=== PATIENT | female | born 1940 | race Caucasian/White ===

== ENCOUNTER 2020-05-18 15:22 | Outpatient (CLI) | payer OTHER, SELFPAY | END 2020-05-18 15:23 | disposition home or self-care (01) | LOC: ANHAUDIO 15:24 | PROVIDERS: PCP Internal Medicine; Visit Provider Otolaryngology | DX: H90.3 Sensorineural hearing loss, bilateral (principal) | CPT/HCPCS: 92557; 92567 ==

== ENCOUNTER 2020-09-01 07:58 | Day surgery (SDC) | payer OTHER, SELFPAY ==
[2020-09-01] VITALS (7 sets, daily range): BP systolic 120–162; BP diastolic 67–111; PULSE 81–107; RESP 17–23; TEMP 36.8–37.1; O2SAT 95–97
--- NOTE | 2020-09-01 08:38 | ED.GENADULT ---
HPI - General Adult General Chief complaint: Skin/Abscess/Foreign Body Stated complaint: difficulty swallowing Time Seen by Provider: 09/01/20 07:59 History of Present Illness HPI narrative: Patient is a 80-year-old female who presents ER with sensation of food stuck in her esophagus. Has been ongoing since 7 PM when she was eating some chicken. She reports if she tries to eat or drink anything she begins vomiting and cannot get the food or water down. This last happened this morning after waking up and trying to drink some water. She has had this happen to her previously and required balloon dilation of her esophagus about 15 years ago. She has discomfort in her upper neck and lower chest consistent with food being stuck. She reports something similar like this happened 4 months ago and she went to [facility] but symptoms resolved on their own. Related Data Home Medications Medication Instructions Recorded Confirmed metformin 500 mg tablet,extended 500 mg PO BID 05/02/20 release 24 hr thyroid (pork) 15 mg tablet 15 mg PO DAILY 05/02/20 Allergies Allergy/AdvReac Type Severity Reaction Status Date / Time prednisone Allergy Mild Unknown Unverified 09/01/20 08:15 bevacizumab Allergy Unknown Anaphylactic Verified 10/08/17 15:30 Shock ciprofloxacin Allergy Unknown Unknown Verified 09/01/20 08:15 Review of Systems Review of Systems: All systems reviewed & are unremarkable except as noted in HPI and below Constitutional: Constitutional: Denies chills and Denies fever(s) ENT: Reports dysphagia, Denies nasal congestion and Denies sore throat Cardiovascular: Cardiovascular: Denies chest pain Gastrointestinal: Gastrointestinal: Denies abdominal pain, Denies bloating, Denies nausea and Reports vomiting [facility] Past Medical History Medical History (Updated 09/01/20 @ 09:43 by Antonio Durand MD) Diabetes Diabetic retinopathy Surgical History Surgical History (Updated 09/01/20 @ 08:42 by Antonio Durand MD) H/O cataract extraction H/O esophagogastroduodenoscopy Family History Family History Sibling Family history of alcoholism Family history of diabetes mellitus in first degree relative Mother Family history of lung disease Father Family history of heart disease in male family member before age 55 Social History Social History Smoking status: Never smoker Alcohol intake: never Gender identity (if verbalized by the patient): Female Exam Narrative: Exam Narrative: GENERAL: Well-appearing, well-nourished, and in no acute distress. HEAD: Normocephalic, atraumatic. ENT: Mucous membranes moist. Tolerating oral secretions. CHEST: Clear to auscultation. No respiratory distress. HEART: Regular rate and rhythm. Normal peripheral pulses. ABDOMEN: Soft, nontender, nondistended. NEURO: Alert and oriented x3. PSYCH: Normal mood and affect. Course Reevaluation(s) Reevaluation #1: Discussed with Dr. Oquendo. Will take to GI suite. Date: 09/01/20 Time: 08:52 Vital Signs Vital signs: Vital Signs Temperature 98.8 F 09/01/20 08:10 Pulse Rate 107 H 09/01/20 08:10 Respiratory Rate 18 09/01/20 08:10 Blood Pressure 162/97 H 09/01/20 08:10 Pulse Oximetry 95 09/01/20 08:10 Temperature 98.8 F 09/01/20 08:10 Pulse Rate 107 H 09/01/20 08:10 Respiratory Rate 18 09/01/20 08:10 Blood Pressure 162/97 H 09/01/20 08:10 Pulse Oximetry 95 09/01/20 08:10 Medical Decision Making Vital Signs Vital Signs: Vital Signs Temperature 98.8 F 09/01/20 08:10 Pulse Rate 107 H 09/01/20 08:10 Respiratory Rate 18 09/01/20 08:10 Blood Pressure 162/97 H 09/01/20 08:10 Pulse Oximetry 95 09/01/20 08:10 Temperature 98.8 F 09/01/20 08:10 Pulse Rate 107 H 09/01/20 08:10 Respiratory Rate 18 09/01/20 08:10 Blood Pressure 162/97 H 09/01/20 0
--- NOTE | 2020-09-01 09:01 | PC.NURSE ---
Report given to Mirtha in OR
[2020-09-01] MEDS: LACTATED RINGERS 1,000 ML 150 ML IV CONT (10:13)
[2020-09-01 10:27] LABS: Glucose Point of Care 222 (65-105)
--- NOTE | 2020-09-01 10:49 | WPDANESEPPF ---
Anes - Initial Pre Proc Eval Procedure: Operation Date: 09/01/20 11:30 Proposed Procedures p Esophagogastroduodenoscopy - Stevo Oquendo MD Date/Time: 09/01/20 10:49 Surgeon: Stevo Oquendo MD Pre Op Diagnosis: difficulty swallowing Patient Data Age: 80 Gender: F Height: 5 ft 5 in Weight: 80 kg Last Vital Signs Temp 98.2 F 09/01/20 10:18 Pulse 81 09/01/20 10:18 Resp 17 09/01/20 10:18 BP 146/83 H 09/01/20 10:18 Pulse Ox 97 09/01/20 10:18 Allergies Allergy/AdvReac Type Severity Reaction Status Date / Time prednisone Allergy Mild Unknown Unverified 09/01/20 10:12 bevacizumab Allergy Unknown Anaphylactic Verified 09/01/20 10:12 Shock ciprofloxacin Allergy Unknown Unknown Verified 09/01/20 10:12 Home Medications Medication Instructions Recorded Confirmed Type metformin 500 mg tablet,extended 500 mg PO BID 05/02/20 09/01/20 History release 24 hr thyroid (pork) 15 mg tablet 15 mg PO DAILY 05/02/20 09/01/20 History Laboratory Tests 09/01/20 10:02 POC Capillary Glucose 222 mg/dl H mg/dl (65-105) Patient hx anesthesia problems: none Family hx anesthesia problems: none PMFSH Past Medical History Medical History (Updated 09/01/20 @ 10:49 by Atul Vargas MD) Diabetes Diabetic retinopathy Hypothyroid Surgical History Surgical History (Updated 09/01/20 @ 08:42 by Antonio Durand MD) H/O cataract extraction H/O esophagogastroduodenoscopy Family History Family History Sibling Family history of alcoholism Family history of diabetes mellitus in first degree relative Mother Family history of lung disease Father Family history of heart disease in male family member before age 55 Social History Social History Smoking status: Never smoker Alcohol intake: never Gender identity (if verbalized by the patient): Female Anes - Eval Final PreProcedure Day of Procedure 09/01/20 10:49 Patient weight: overweight Heart: regular rate and rhythm Lungs: clear to auscultation Airway: Mallampati scale class II Neurological: alert and oriented Last oral intake: >/= 8 hours ASA classification: III Emergent: yes Anesthetic plan: proceed Anesthesia type and monitoring: general GIVS and standard monitoring Informed Consent: The patient's anesthetic plan and its attendant risks and benefits were discussed with the patient/family/POA. Questions were solicited and answers provided to the satisfaction of the patient/family/POA.
--- NOTE | 2020-09-01 10:50 | P.CONGI_ITS ---
Assessment and Plan Assessment and plan (1) Esophageal obstruction due to food impaction: Code(s): K22.2 - Esophageal obstruction; T18.128A - Food in esophagus causing other injury, initial encounter Status: Acute Assessment and Plan: Patient has a food impaction. Appears to be on the basis of esophageal narrowing. History suggest acid reflux. This will be assessed at the time of endoscopy. Further recommendations will be given after EGD. GI Consult Note Consult date/time: 09/01/20 10:50 HPI: Shanique Dickinson is a 80 year old female Seen in evaluation at the request of the emergency room. Patient was eating [place] food with chicken last evening. She abruptly was unable to eat or swallow any additional intake. She currently has trouble with saliva. She apparently had difficulty all night. She states she has frequent heartburn. Takes [id number] antacids on a frequent basis. Occasionally will take [id number] Pepcid. She denies any bleeding or weight loss. Past medical history is significant for similar occurrence many years ago. Apparently treated elsewhere. She has been treated for or eye problems in the past with some steroids. [facility] Past Medical History Medical History (Updated 09/01/20 @ 10:49 by Atul Vargas MD) Diabetes Diabetic retinopathy Hypothyroid Surgical History Surgical History (Updated 09/01/20 @ 08:42 by Antonio Durand MD) H/O cataract extraction H/O esophagogastroduodenoscopy Family History Family History Sibling Family history of alcoholism Family history of diabetes mellitus in first degree relative Mother Family history of lung disease Father Family history of heart disease in male family member before age 55 Social History Social History Smoking status: Never smoker Alcohol intake: never Gender identity (if verbalized by the patient): Female Meds Home Medications and Allergies Home Medications Medication Instructions Recorded Confirmed Type metformin 500 mg tablet,extended 500 mg PO BID 05/02/20 09/01/20 History release 24 hr thyroid (pork) 15 mg tablet 15 mg PO DAILY 05/02/20 09/01/20 History Allergies Allergy/AdvReac Type Severity Reaction Status Date / Time prednisone Allergy Mild Unknown Unverified 09/01/20 10:12 bevacizumab Allergy Unknown Anaphylactic Verified 09/01/20 10:12 Shock ciprofloxacin Allergy Unknown Unknown Verified 09/01/20 10:12 Vital Signs Vital Signs - 24 hr 09/01/20 08:10 09/01/20 09:48 09/01/20 10:18 Temperature 98.8 F 98.2 F Pulse Rate 107 H 103 H 81 Respiratory Rate 18 18 17 Blood Pressure 162/97 H 160/93 H 146/83 H Pulse Oximetry 95 97 97 Exam Narrative: Exam Narrative: Physical exam reveals patient to be alert. Vital signs stable. Somewhat uncomfortable at rest. Producing excess saliva. HEENT exam otherwise unremarkable. Lungs are clear to auscultation and percussion. Heart is without murmur or extra sounds. Abdominal exam bowel sounds are present soft nontender with no hepatosplenomegaly. Rectal exam deferred at this time.
== END 2020-09-01 12:15 | disposition home or self-care (01) ==
LOC: ANHED 08:50 → ANHENDO 09:38
PROVIDERS: Emergency Provider Emergency Medicine; PCP Internal Medicine; Visit Provider Internal Medicine Gastroenterology
PROC: 0DJ08ZZ Inspection of Upper Intestinal Tract, Via Natural or Artificial Opening Endoscopic (ICD-10-PCS; CPT 43235; principal; 2020-09-01 11:30)
DX: T18.128A Food in esophagus causing other injury, initial encounter (principal); Q39.4 Esophageal web; K44.9 Diaphragmatic hernia without obstruction or gangrene; E11.319 Type 2 diabetes mellitus with unspecified diabetic retinopathy without macular edema; E03.9 Hypothyroidism, unspecified; Z79.84 Long term (current) use of oral hypoglycemic drugs
CPT/HCPCS: 43247; 43450; 99285; J2704; J7120

== ENCOUNTER 2021-06-02 09:29 | Outpatient (CLI) | payer OTHER, SELFPAY ==
--- NOTE | ~2021-06-02 | US_ITS ---
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 COMPARISON: None. FINDINGS: Right and left brachial artery pressures of 154 mm Hg and 179 mm Hg, respectively, are concordant (no rmal difference <= 30 mmHg). The right and left high-thigh pressure indices are unable to be obtained due to inability to occlude the vessels at the bilateral thighs (normal > 1.2). The right ankle-brachial index (KENIA) is 0.84 (normal >= 0.9-1). The right great toe-brachial index (T BI) is 0.44 (normal >= 0.6-0.8). The right lower extremity segmental pressure gradients are normal (n ormal gradients <= 20-30 mmHg between adjacent levels on the same leg or the same levels on the two l egs). Arterial waveforms are biphasic with brisk systolic upstrokes throughout the arteries of the ri ght lower limb. The left KENIA is 0.88. The left TBI is 0.35. The left lower extremity segmental pressure gradients are normal between the arteries at the bilateral ankles with pressures unable to be obtained in the more proximal left lower limb due to inability to occlude the vessels. Arterial waveforms are biphasic wi th brisk systolic upstrokes throughout the arteries of the left lower limb. IMPRESSION: 1. Lateral arterial occlusive disease with mildly decreased bilateral ABIs and mildly decreased right and moderately decreased left TBIs. Reviewed, dictated and finalized at location A.
== END 2021-06-02 09:30 | disposition home or self-care (01) ==
LOC: ANHIMG 09:43
PROVIDERS: Visit Provider Podiatrist Foot & Ankle Surgery
DX: I70.203 Unspecified atherosclerosis of native arteries of extremities, bilateral legs (principal)
CPT/HCPCS: 93923

== ENCOUNTER 2021-10-11 14:02 | Outpatient (RCR) | payer OTHER, SELFPAY ==
[2021-10-11] MEDS: diphenhydrAMINE HCl CAP 25 MG CAPSULE PO (15:20)
[2021-10-11] MEDS: ACETAMINOPHEN 325 MG TABLET 650 MG PO (15:20)
[2021-10-11] MEDS: FAMOTIDINE 20 MG TABLET PO (15:20)
[2021-10-11 15:23] VITALS: BP 164/64; PULSE 72; RESP 20; TEMP 37; O2SAT 100
[2021-10-11 16:27] VITALS: BP 147/58
== END 2021-10-11 17:00 ==
LOC: AMCINF 14:02
PROVIDERS: PCP Physician Assistant Medical; Visit Provider Internal Medicine Hematology & Oncology
DX: U07.1 COVID-19 (principal); E11.9 Type 2 diabetes mellitus without complications; I25.10 Atherosclerotic heart disease of native coronary artery without angina pectoris
CPT/HCPCS: A9270; M0243; Q0244

== ENCOUNTER 2023-01-08 15:16 | Emergency (ER) | payer OTHER, SELFPAY ==
[2023-01-08 15:31] VITALS: BP 172/66; PULSE 79; RESP 16; TEMP 36.6; O2SAT 96
[2023-01-08 15:33] VITALS: BP 172/66; PULSE 79; RESP 16; TEMP 36.6; O2SAT 96
--- NOTE | 2023-01-08 15:39 | ED.URI ---
HPI - URI/Sore Throat General Chief Complaint: Upper Respiratory Infection Stated Complaint: Weakness, Sore Throat Time Seen by Provider: 01/08/23 15:39 Source: patient Mode of arrival: ambulatory Limitations: no limitations History of Present Illness HPI Narrative: 82 yo F presents with c/o sore throat, nasal congestion, sinus pressure, PND for 1 wk. Symptoms getting progressively worse. Now c/o sinus pressure is causing dental pain. TAking OTC dayquil/nyquil with no relief. afebrile. No CP or SOB. States Very little coughing . pt is well appearing and talkative. All systems reviewed and negative except as noted above. Related Data Home Medications Medication Instructions Recorded Confirmed flash glucose sensor ([employer] 08/10/22 Hank 2 Sensor kit) estradiol 0.01% (0.1 mg/gram) 1 g vaginal 3XW 10/09/22 01/08/23 vaginal cream metformin 500 mg tablet 1,000 mg PO BID 11/20/22 01/08/23 Allergies Allergy/AdvReac Type Severity Reaction Status Date / Time prednisone Allergy Mild Loss of Verified 11/16/22 10:32 bladder control bevacizumab Allergy Unknown Anaphylactic Verified 11/16/22 10:32 Shock ciprofloxacin Allergy Unknown Unknown Verified 11/16/22 10:32 steroids Allergy Unknown Uncoded 11/16/22 15:58 Review of Systems Review of Systems: CONSTITUTIONAL: Denies fever, chills, or sweats. EYES: Denies visual changes, redness, or discharge. ENT: Reports rhinorrhea, congestion, sore throat, sinus pressure. Denies otalgia. CARDIOVASCULAR: Denies chest pain, palpitations, or edema. RESPIRATORY: Denies cough or dyspnea. GASTROINTESTINAL: Denies abdominal pain, nausea, vomiting, or diarrhea. GENITOURINARY: Denies dysuria or hematuria. SKIN: Denies rash or itching. MUSCULOSKELETAL: Denies back pain, joint pain, or myalgia. NEUROLOGIC: Denies headache, numbness, or weakness. PSYCHIATRIC: Denies anxiety or depression. All other systems reviewed are negative, except as documented in HPI. [facility] Past Medical History Medical History (Updated 01/08/23 @ 15:53 by Marta Schrader NP) Arthritis Diabetes Diabetic retinopathy Hypothyroid Surgical History Surgical History H/O cataract extraction H/O esophagogastroduodenoscopy H/O: hysterectomy History of gynecological procedure suction D&C missed AB x 2 Family History Family History Sibling Family history of alcoholism Family history of diabetes mellitus in first degree relative Mother Family history of lung disease Father Family history of heart disease in male family member before age 55 Social History Social History Smoking status: Never smoker Alcohol intake: never Substance use: never Substance use type: does not use Living arrangements: other Additional living arrangements comments: Occupation/Education: retired Gender identity (if verbalized by the patient): Female Sexual Orientation (if Verbalized by the Patient): Straight or Heterosexual Comments At time of signature, agree with nursing past medical, surgical, social and family history. There is no relevant family history pertinent to the presenting complaint. Exam Narrative: GENERAL: This is a well-nourished, well-developed patient, in no apparent distress. HEAD: normocephalic, atraumatic. EYES: PERRL. Sclera clear/white. Vision is grossly intact. EARS: External ears normal, auditory canals clear and without drainage, fluid bilateral TMs without erythema or perforation. NOSE: External nose normal with Clear nasal drainage, erythema to nares, moderate congestion. Bilateral frontal and maxillary sinus tenderness on palpation. THROAT: Mucous membranes moist, Erythema to posterior pharynx with clear postnasal drainage. NECK: Neck supple, non-tender without lymphadenopathy, masses or thy
== END 2023-01-08 16:00 | disposition home or self-care (01) ==
PROVIDERS: Emergency Provider Nurse Practitioner Family; PCP Physician Assistant Medical
DX: J01.90 Acute sinusitis, unspecified (principal); M19.90 Unspecified osteoarthritis, unspecified site; E11.319 Type 2 diabetes mellitus with unspecified diabetic retinopathy without macular edema; Z79.84 Long term (current) use of oral hypoglycemic drugs; E03.9 Hypothyroidism, unspecified
CPT/HCPCS: 99213; G0463

== ENCOUNTER 2023-02-23 17:43 | Emergency (ER) | payer OTHER, SELFPAY ==
[2023-02-23 17:57] VITALS: BP 155/77; PULSE 69; RESP 18; TEMP 36.4; O2SAT 100
--- NOTE | 2023-02-23 18:06 | ED.URI ---
HPI - URI/Sore Throat General Chief Complaint: Upper Respiratory Infection Stated Complaint: Dizziness,Congestion Time Seen by Provider: 02/23/23 18:07 Source: patient Mode of arrival: ambulatory Limitations: no limitations History of Present Illness HPI Narrative: Patient is an 82-year-old female who presents with a week to week and a half of sinus congestion, sinus pressure and intermittent cough. Patient also reports intermittent dizziness but has not had any changes in vision, headache or syncope. Patient was treated in December for sinus infection. Denies any ear pain, fever, nausea, vomiting, diarrhea. Has been taking Sudafed but no allergy medicine at this time. Related Data Allergies Allergy/AdvReac Type Severity Reaction Status Date / Time prednisone Allergy Mild Loss of Verified 02/23/23 18:04 bladder control bevacizumab Allergy Unknown Anaphylactic Verified 02/23/23 18:04 Shock ciprofloxacin Allergy Unknown Unknown Verified 02/23/23 18:04 steroids Allergy Unknown Uncoded 02/23/23 18:04 Review of Systems Review of Systems: All systems reviewed & are unremarkable except as noted in HPI and below Constitutional: Constitutional: Denies body ache(s), Denies chills, Denies fatigue, Denies fever(s), Denies headache(s), Denies malaise and Denies weakness Eyes: Eyes: Denies blurry vision, Denies itchy eyes and Denies loss of vision ENT: Denies otalgia, Denies headache(s), Reports nasal congestion, Reports sinus pain, Reports sinus pressure and Denies sore throat Cardiovascular: Cardiovascular: Denies chest pain, Denies irregular heart rhythm and Denies dyspnea Respiratory: Respiratory: Reports cough and Denies dyspnea Gastrointestinal: Gastrointestinal: Denies abdominal pain, Denies diarrhea, Denies nausea and Denies vomiting Musculoskeletal: Musculoskeletal: Denies back pain, Denies myalgias and Denies arthralgias Integumentary/Breasts: Skin/Breast: Denies pruritus and Denies rash Neurologic: Denies headache(s), Denies loss of vision and Denies weakness Psychiatric: Psychiatric: Reports no additional psychiatric complaints Endocrine: Endocrine: Denies fatigue Allergic/Immunologic: Allergic/Immunologic: Denies itchy eyes PMFSH Past Medical History Medical History (Updated 02/23/23 @ 18:26 by Kandy Don, CHERYL) Arthritis Diabetes Diabetic retinopathy Hypothyroid Surgical History Surgical History H/O cataract extraction H/O esophagogastroduodenoscopy H/O: hysterectomy History of gynecological procedure suction D&C missed AB x 2 Family History Family History Sibling Family history of alcoholism Family history of diabetes mellitus in first degree relative Mother Family history of lung disease Father Family history of heart disease in male family member before age 55 Social History Social History Smoking status: Never smoker Alcohol intake: never Substance use: never Substance use type: does not use Living arrangements: other Additional living arrangements comments: Occupation/Education: retired Gender identity (if verbalized by the patient): Female Sexual Orientation (if Verbalized by the Patient): Straight or Heterosexual Comments At time of signature, agree with nursing past medical, surgical, social and family history. There is no relevant family history pertinent to the presenting complaint. Exam Const: General: cooperative, healthy appearing, comfortable, no acute distress and well nourished Nutritional Appearance: well nourished Orientation/consciousness: patient oriented x3 Limitations: no limitations HENMT: Head: normal to inspection, normocephalic and atraumatic Ears: hearing grossly normal bilaterally, external ears normal, TM normal on the right, EAC's normal, no periauricu
== END 2023-02-23 18:31 | disposition home or self-care (01) ==
PROVIDERS: Emergency Provider Nurse Practitioner Family; PCP Physician Assistant Medical
DX: J32.9 Chronic sinusitis, unspecified (principal); H61.22 Impacted cerumen, left ear; M19.90 Unspecified osteoarthritis, unspecified site; E11.319 Type 2 diabetes mellitus with unspecified diabetic retinopathy without macular edema; E03.9 Hypothyroidism, unspecified
CPT/HCPCS: 99213; G0463

== ENCOUNTER 2024-06-02 18:38 | Emergency (ER) | payer OTHER, SELFPAY ==
--- NOTE | 2024-06-02 19:12 | ED.FEMALEGU ---
HPI - Female Genitourinary General Chief complaint: Urogenital-Female Stated complaint: uti symptoms Time Seen by Provider: 06/02/24 19:13 Source: patient, family, RN notes reviewed and old records reviewed Mode of arrival: ambulatory Limitations: no limitations History of Present Illness HPI Narrative: 84 year old female accompanied by daughter presents to express care with complaints of pressure to her bladder and increased incontinency for the past 2 weeks. Patient reports that she has had increased feelings of weakness for the past week. Daughter states that patient was having increased weakness a few months ago and noted diabetes AIC up to 8 erlin and changes with medications have improved control of diabetes, states has follow up appointment with MD later this week or next.Patient reports that she drink water well.al least 6 glasses daily. MD elicited complaint: UTI Pertinent past history: diabetes and other (UTI, ) Onset (ago): week(s) Location of symptoms: suprapubic Severity scale (1-10): 4 Quality of pain: dull Urinary symptoms: Urgency (increased incontinency) Treatment prior to arrival: none Related Data Allergies Allergy/AdvReac Type Severity Reaction Status Date / Time prednisone Allergy Mild Loss of Verified 06/02/24 19:13 bladder control bevacizumab Allergy Unknown Anaphylactic Verified 06/02/24 19:13 Shock ciprofloxacin Allergy Unknown Unknown Unverified 06/02/24 19:22 steroids Allergy Unknown Uncoded 06/02/24 19:13 Review of Systems Review of Systems: CONSTITUTIONAL: Denies fever, chills, or sweats.reports weakness CARDIOVASCULAR: Denies chest pain, palpitations, or edema. RESPIRATORY: Denies cough or dyspnea. GASTROINTESTINAL: reports suprapubic abdominal pressure achy,no nausea, vomiting, or diarrhea. GENITOURINARY: Reports dysuria, frequency, positive urgency, increased incontinency Denies flank pain or hematuria. SKIN: Denies rash or itching. MUSCULOSKELETAL: Denies back pain or myalgia. Denies CVA tenderness NEUROLOGIC: Denies headache All systems reviewed & are unremarkable except as noted in HPI and below PMFSH Past Medical History Medical History Arthritis Diabetes Diabetic retinopathy Hypothyroid Surgical History Surgical History H/O cataract extraction H/O esophagogastroduodenoscopy H/O: hysterectomy History of gynecological procedure suction D&C missed AB x 2 Family History Family History Sibling Family history of alcoholism Family history of diabetes mellitus in first degree relative Mother Family history of lung disease Father Family history of heart disease in male family member before age 55 Social History Social History Smoking status: Never smoker Alcohol intake: never Substance use: never Substance use type: does not use Living arrangements: other Additional living arrangements comments: Occupation/Education: retired Gender identity (if verbalized by the patient): Female Sexual Orientation (if Verbalized by the Patient): Straight or Heterosexual Comments At time of signature, agree with nursing past medical, surgical, social and family history. There is no relevant family history pertinent to the presenting complaint Exam Narrative: GENERAL: Well-appearing, well-nourished, and in no acute distress. HEAD: Normocephalic, atraumatic. NECK: Supple. no lymphadenopathy CHEST: Clear to auscultation. No respiratory distress.SAO2 98% on room air HEART: Regular rate and rhythm. No murmur heard. Normal peripheral pulses. ABDOMEN: Soft, suprapubic tender, nondistended, normal active bowel sounds. No CVA tenderness, some suprapubic tenderness, reports does have some issues with constipation EXTREMITIES: Normal ran
[2024-06-02 19:13] VITALS: BP 168/73; PULSE 75; RESP 18; TEMP 36.9; O2SAT 98
[2024-06-02 19:13] LABS: EDUAAPPEAR Clear; EDUABILI Negative; EDUABLOOD Trace; EDUACOLOR1 Yellow; EDUAGLUCOSE Negative; EDUAKETONE Negative; EDUALEUKO 2+; EDUANITRATE Negative; EDUAPROTEIN Negative; EDUASPGRAVITY 1.015; EDUAUROBILI 0.2
== END 2024-06-02 19:45 | disposition home or self-care (01) ==
PROVIDERS: Emergency Provider Registered Nurse
DX: N39.0 Urinary tract infection, site not specified (principal); M19.90 Unspecified osteoarthritis, unspecified site; E03.9 Hypothyroidism, unspecified; E11.319 Type 2 diabetes mellitus with unspecified diabetic retinopathy without macular edema
CPT/HCPCS: 81003; 87086; 87088; 99213; G0463

== ENCOUNTER 2024-08-26 18:22 | Emergency (ER) | payer OTHER, SELFPAY ==
--- NOTE | ~2024-08-26 | XR_ITS ---
EXAMINATION: XR foot LT min 3V DATE: 08/26/2024 18:48 INDICATION: Left foot injury TECHNIQUE: Dorsoplantar, two oblique and lateral views of the left foot were obtained. COMPARISON: None. FINDINGS: Diffuse osteopenia which decreases sensitivity for nondisplaced fracture. Nondisplaced fractures proximal metaphyses of the second-fifth proximal phalanges. Minimal displaceme nt of an age indeterminate fracture at the neck of the third middle phalanx. Mild and moderate polyar ticular osteoarthritis involving multiple joints in the mid and forefoot. Soft tissue swelling over t he dorsum of the foot. IMPRESSION: 1. Acute nondisplaced minimally displaced extra articular fractures across the bases of the second-fi fth proximal phalanges. 2. Additional age-indeterminate minimally displaced fracture at the neck of the third middle phalanx. 3. Diffuse osteopenia which decreases sensitivity for nondisplaced fractures. 4. Mild to moderate polyarticular osteoarthritis in the mid and forefoot. Reviewed, dictated and finalized at location [facility] IMPRESSION: 1. Acute nondisplaced minimally displaced extra articular fractures across the bases of the second-fifth proximal phalanges. 2. Additional age-indeterminate minimally displaced fracture at the neck of the third middle phalanx. 3. Diffuse osteopenia which decreases sensitivity for nondisplaced fractures. 4. Mild to moderate polyarticular osteoarthritis in the mid and forefoot.
[2024-08-26 18:33] VITALS: BP 153/59; PULSE 74; RESP 16; TEMP 36.7; O2SAT 99
--- NOTE | 2024-08-26 18:44 | ED_ITS ---
HPI - Extremity Problem General Chief complaint: Extremity Problem,Nontraumatic Stated complaint: LT Leg injury Time Seen by Provider: 08/26/24 19:08 Source: patient and RN notes reviewed Mode of arrival: ambulatory Limitations: no limitations History of Present Illness HPI Narrative: 84 year old female presents with concern for left foot injury. She reports last night she fell when she was walking to the restroom at 2:00 a.m.. Reports bruising, pain, swelling at the base of her left toes. MD Complaint: extremity pain Related Data Home Medications Medication Instructions Recorded Confirmed empagliflozin 10 mg tablet 10 mg DIRECTED 08/26/24 08/26/24 (Jardiance) metformin 500 mg tablet 500 mg DIRECTED 08/26/24 08/26/24 thyroid (pork) 90 mg tablet 90 mg DIRECTED 08/26/24 08/26/24 ([place] Thy[facility]) Allergies Allergy/AdvReac Type Severity Reaction Status Date / Time prednisone Allergy Mild Loss of Verified 08/26/24 18:49 bladder control bevacizumab Allergy Unknown Anaphylactic Verified 08/26/24 18:49 Shock ciprofloxacin Allergy Unknown Unknown Verified 08/26/24 18:49 steroids Allergy Unknown Uncoded 08/26/24 18:49 Review of Systems Review of Systems: CONSTITUTIONAL: Denies malaise, chills, sweats, or fever. SKIN: Denies rash or itching, open skin, laceration, abrasion, redness, warmth MUSCULOSKELETAL: Reports left foot pain, swelling, bruising NEUROLOGIC: Denies numbness, weakness All systems reviewed & are unremarkable except as noted in HPI and below PMFSH Past Medical History Medical History Arthritis Diabetes Diabetic retinopathy Hypothyroid Surgical History Surgical History H/O cataract extraction H/O esophagogastroduodenoscopy H/O: hysterectomy History of gynecological procedure suction D&C missed AB x 2 Family History Family History Sibling Family history of alcoholism Family history of diabetes mellitus in first degree relative Mother Family history of lung disease Father Family history of heart disease in male family member before age 55 Social History Social History Smoking status: Never smoker Alcohol intake: never Substance use: never Substance use type: does not use Living arrangements: other Additional living arrangements comments: Occupation/Education: retired Gender identity (if verbalized by the patient): Female Sexual Orientation (if Verbalized by the Patient): Straight or Heterosexual Comments At time of signature, agree with nursing past medical, surgical, social and family history. There is no relevant family history pertinent to the presenting complaint Exam Narrative: GENERAL: Well-appearing, well-nourished, and in no acute distress. HEAD: Normocephalic, atraumatic. EYES: PERRLA, conjunctivae clear NECK: Supple. CHEST: Speaks in full sentences. No respiratory distress. HEART: Regular rate and rhythm. Normal and equal peripheral pulses. EXTREMITIES: Left foot and digits have grossly normal strength and sensation, limited normal range of motion. Moderate dorsal edema and ecchymosis. Normal sensation with sensitivity to light touch and pain. No point tenderness. No skin tenting, no devitalized tissue or atrophy, no trophic changes, no obvious deformity, alignment normal, nearby joints and structures intact. Distal pulses palpable and equal bilaterally, skin warm, dry, pink. Capillary refill less than 3 seconds. SKIN: Warm, dry, no rash. Superficial laceration noted between the 4th and 5th digits NEURO: Alert and oriented x3. PSYCH: Normal mood and affect Course Course Emergency Course: Patient is diabetic, the laceration on her foot is superficial, and at this time does not warrant closure. Patient was given strict instructions on careful care of her foot and toes to prevent infection. Patient is aware of diagnosis, understands and agrees to treatment plan. Anticipatory guidance given. Patient agrees to follow-up as directed and is aware of reasons to seek care at the emergency department. Portions of this record may have been created with voice recognition software Level of Care: Express Care Visit Vital Signs Vital signs: Vital Signs Temperature 98.1 F 08/26/24 18:33 Pulse Rate 74 08/26/24 18:33 Respiratory Rate 16 08/26/24 18:33 Blood Pressure 153/59 H 08/26/24 18:33 Pulse Oximetry 99 08/26/24 18:33 Oxygen Delivery Room Air 08/26/24 18:33 Temperature 98.1 F 08/26/24 18:33 Pulse Rate 74 08/26/24 18:33 Respiratory Rate 16 08/26/24 18:33 Blood Pressure 153/59 H 08/26/24 18:33 Pulse Oximetry 99 08/26/24 18:33 Oxygen Delivery Room Air 08/26/24 18:33 Reviewed. MDM - Extremity (Nontraumatic) MDM Narrative Medical decision making narrative: Patients injury and pain is consistent with musculoskeletal etiology. No signs of neurological or vascular compromise on exam. Compartments and tissues are soft without signs of compartment syndrome. Pain is felt appropriate for further evaluation on an outpatient basis. Critical Care Time Critical Care Time Critical Care Time: No Discharge Plan Discharge Clinical Impression: Fracture of multiple toes Patient Disposition: Home, Self-Care Condition: Stable Instructions: Toe Fracture (ED) Additional Instructions: Please rest, ice and elevate the affected extremity. For the next few days Please take Motrin 600mg every 8 hours, as needed, for pain (take with food). If you are having pain between doses of ibuprofen you can take Tylenol. If your pain is not relieved with ibuprofen or Tylenol you can take tramadol. Follow up with Orthopedic Surgery in 1-2 days for further evaluation - please call for an appointment. Keep Facundo bandage and postop shoe on wall weight-bearing. Use your walker to avoid bearing weight on your left foot. Please go to ER immediately for increased pain, tingling/numbness, swelling, redness, and fever Prescriptions: New tramadol 50 mg tablet 50 mg PO Q6H PRN (Reason: pain) Qty: 14 0RF No Action Jardiance 10 mg tablet (DME) FreeStyle Hank 2 Sensor Kit See Rx Instructions .Route Qty: 6 0RF Rx Instructions: change every 14 days (DME) FreeStyle Hank 14 Day [place] Misc See Rx Instructions .Route Qty: 1 0RF Rx Instructions: As directed Toujeo Max U-300 SoloStar 300 unit/mL (3 mL) insulin pen 40 unit subcut QHS Qty: 6 1RF thyroid (pork) [[place] Thyroid] 90 mg tablet See Rx Instructions .ROUTE .COMPLEX Qty: 90 0RF Dose Instruction: TAKE 1 TABLET BY MOUTH DAILY Rx Instructions: TAKE 1 TABLET BY MOUTH DAILY metformin 500 mg tablet See Rx Instructions .ROUTE .COMPLEX Qty: 360 0RF Dose Instruction: TAKE 1 TABLET FOUR TIMES A DAY Rx Instructions: TAKE 1 TABLET FOUR TIMES A DAY Follow-up/Referrals: Nathen Miguel MD [Physician] - [facility],Israel Shannon MD [Primary Care Provider] - Time of Disposition: 19:27
== END 2024-08-26 19:35 | disposition home or self-care (01) ==
PROVIDERS: Emergency Provider Nurse Practitioner; PCP Family Medicine
DX: S99.922A Unspecified injury of left foot, initial encounter (principal); W19.XXXA Unspecified fall, initial encounter; E11.319 Type 2 diabetes mellitus with unspecified diabetic retinopathy without macular edema; Z79.84 Long term (current) use of oral hypoglycemic drugs; E03.9 Hypothyroidism, unspecified; M19.90 Unspecified osteoarthritis, unspecified site
CPT/HCPCS: 73630; 99214; G0463

== ENCOUNTER 2025-07-10 17:30 | Emergency (ER) | payer OTHER, SELFPAY ==
--- OUTSIDE RECORDS SUMMARY | 2009-08-18 09:45 | XMS_ITS | Continuity of Care Document ---
Author Organization [facility] Address [address] [place] [address] [address] [place] [address] Phone Care Team Providers Care Airplane Electrician Name Role Phone Ye OD, Stevo Unavailable Unavailable Procedures Procedure Date Office/outpatient Visit, Est Eye Exam, New Patient Advance Directives Directive Yes / No Effective Date File Name No Information Encounters Encounter Description Practice Location Reason(s) For Visit Diagnoses Date Provider Providers Copied on Encounter Office/outpat ient Visit, Est [facility], [address] [place] [address] [address], [place], [place], [id number], tel:[phone] SEC [facility] No Information 9-200 9 Ye OD Stevo. [address] , [address], [place], [place], [facility], [place]. tel:[phone] [facility], [address] [place] [address] [address], [place], [place], [id number], [place] tel:[phone] [facility] No Information 2-200 9 Ye OD Stevo. [address] , [address], [place], [address], [place]. tel:[phone] Referring Provider: Kathya Colon MD, [address], [place], [address]. tel:[phone] Family History Family Member Type Diagnosis Age At Onset No Information Payers Payer name Insurance type Covered libertarian ID Authoriza tion(s) No Information Social History Type Description Quantity Date Captured Comments Sex Female Smoking Status No Information Chief Complaint And Reason For Visit No Information Reason For Referral Reason For Referral No Information History Of Present Illness Encounter Date Complaint History Of Prese nt Illness No Information Functional Status Date Functional Assessmen t No Information Instructions Date Instruction Additional Infor mation No Information Assessments Type Assessment Date No Information Patient Care Teams Name Effective Dates (start - stop) Status Members No Information
--- NOTE | ~2025-07-10 | XR_ITS ---
EXAMINATION: XR tibia fibula RT 2V, 07/10/2025 17:58 CDT HISTORY: right leg sudden pain COMPARISON: No comparisons available. Findings: No acute fracture or malalignment. No significant degenerative changes. Soft tissues unremarkable. Impression: No acute fracture or malalignment. Reviewed, dictated and finalized at location P. Impression: No acute fracture or malalignment.
--- OUTSIDE RECORDS SUMMARY | 2025-07-10 17:39 | XMS_ITS | Clinical Summary ---
Author Organization [facility] Address [facility] [place] [address] Care Team Providers Care Floral Manager Name Role Phone Israel Blount MD Primary Care Provider [phone] Allergies Active Allergy Reactions Criticality Noted Date Comments Fluocinolone Unknown 05/31/2019 Penicillins Unknown 05/31/2019 Steroids Fatigue 10/10/2021 Medications estradiol 0.1 MG/24HR 1 Active famotidine 40 MG tablet Take 1 tablet (40 mg total) by mouth daily. 1 Active progesterone (PROMETRIUM) 100 MG capsule 3 Active metroNIDAZOLE (METROGEL) 0.75 % vaginal gel 3 Active polyethylene glycol (MIRALAX) 17 GM/SCOOP powderIndications: Constipation, unspecified constipation type Dissolve powder in 6 oz of juice at bedtime as needed 255 g 3 Active estradiol (ESTRACE) 0.1 MG/GM vaginal cream 3 Active omeprazole (PRILOSEC) 20 MG capsuleIndications :GERD (gastroesophageal reflux disease) Take 1 capsule (20 mg total) by mouth daily. 90 capsule 1 3 Active empagliflozin (JARDIANCE) 10 MG tabletIndications: Type 2 diabetes mellitus without complication, with long-term current use of insulin (CMS/HCC HHS/HCC) Take 1 tablet (10 mg total) by mouth daily. 90 tablet 1 4 Active metFORMIN (GLUCOPHAGE) 1000 MG tabletIndications: Type 2 diabetes mellitus without complication, with long-term current use of insulin ([facility]) TAKE 1 TABLET TWICE A DAY WITH MEALS 180 tablet 3 4 Active traMADol (ULTRAM) 50 MG tablet 4 Active ARMOUR THYROID 90 MG Tab tabletIndications: Acquired hypothyroidism TAKE 1 TABLET DAILY 90 tablet 3 5 Active mirabegron ER (MYRBETRIQ) 25 MG 24 hr tabletIndications: Overactive bladder Take 1 tablet by mouth twice per day 180 tablet 1 5 Active Continuous Glucose Boiler Setter (FREESTYLE SCARLET 2 READER) DeviceIndications: Type 2 diabetes mellitus without complication, with long-term current use of insulin ([facility]) USE WITH SCARLET 2 SENSORS TO MONITOR BLOOD GLUCOSE 1 each 5 Active erythromycin (ROMYCIN) 5 MG/GM (0.5%) ophthalmic ointmentIndication s:Conjunctivitis Apply thin layer into affected eye twice per day for 7 days. 3.5 g 5 Active Insulin Glargine, 2 Unit Dial, (TOUJEO MAX SOLOSTAR) 300 UNIT/ML Solution Pen-injectorIndica tions:Type 2 diabetes mellitus without complication, with long-term current use of insulin ([facility]) Inject 20 Units into the skin 2 (two) times a day. 12 mL 1 5 Active Continuous Glucose Sensor (FREESTYLE SCARLET 2 SENSOR) MiscIndications:Ty pe 2 diabetes mellitus without complication, with long-term current use of insulin ([facility]) APPLY EVERY 14 DAYS 6 each 1 5 Active Continuous Glucose Sensor (FREESTYLE SCARLET 2 SENSOR) MiscIndications:Ty pe 2 diabetes mellitus without complication, with long-term current use of insulin ([facility]) APPLY EVERY 14 DAYS 6 each 1 5 025 Discontin ued(Reord er) Active Problems Problem Noted Date Diagnosed Date Acquired hypothyroidism 03/24/2023 Type 2 diabetes mellitus wit hout complication, with long-term current use of insulin ([facility]) 03/24/2023 Gastroesophageal reflux disease without esophagi tis 03/24/2023 Atrial fibrillation ([facility]) Encounters Date Type Department Care Team Description 06/25/2025 Scan [facility] Scanned, [facility] 06/21/[address] [phone] Israel Blount MD Question 05/21/2025 Telephone [facility] Internal [address] [phone] Israel Blount MD Other (Lack of energy /) 05/12/2025 Scan [facility]VCS Scanned, [facility] 05/11/2025 11:36 AM CDT - 05/11/2025 11:59 PM CDT Hospital Encounter [facility] [address] [place] [address] [phone] Israel Blount MD Discharge Disposition: Home or Self Care (Routine Discharge) 05/11/2025 11:20 AM CDT Office Visit [address] [phone] Israel Blount MD Follow Up 05/11/2025 11:00 AM CDT Laboratory Only [address] [phone] Israel Blount MD 05/11/2025 Results Follow-Up [facility] [address] [phone] Israel Blount MD THYROID STIM HORMONE TSH, FREE T3, THYROXINE, FREE (FT4) 05/11/2025 Travel 05/03/[address] [phone] Israel Blount MD Medication 04/22/2025 Orders Only [facility] Internal [address] [phone] GusmanJoselin vickersCHERYL 04/13/2025 Telephone [facility] Family & Internal Medicine [facility] [id number] [place] [phone] Israel Blount MD Question from Last 3 Months Immunizations Immunization Administration Dates Next Due Tdap (Generic) 09/04/2017 Family History Medical History Relation Comments Heart Attack Father Relation Status Comments Father Mother Social History Tobacco Use Types Packs/Day Years Used Date Smoking Tobacco: Never Smokeless Tobacco: Never Tobacco Cessation:Counseling Given: No Alcohol Use Standard Drinks/Week Comments No 0 (1 standard drink = 0.6 oz pur e alcohol) AUDIT-C Answer Date Recorded Frequency of Alcohol Consumption Never 12/22/2020 Average Number of Drinks Not on file 021 Frequency of Binge Drinking Not on file 11/29 PHQ-2 Answer Date Recorded Patient Health Questionnaire-2 Score 0 10/09/2024 Comments No Sex and Gender Information Value Date Recorded Sex Assigned at Female 12/31/2024 11:25 AM CDT Legal Sex Female 3:13 PM CDT Gender Identity Female 12/31/2024 11:25 AM CDT Sexual Orientation Not on file Last Filed Vital Signs Vital Sign Reading Time Taken Comments Blood Pressure 154/75 05/11/2025 11:28 AM CDT Pulse 77 05/11/2025 11:28 AM CDT Temperature 36.4 C (97.5 F) 05/11/2025 11:28 AM CDT Respiratory Rate 16 05/11/2025 11:28 AM CDT Oxygen Saturation 95% 05/11/2025 11:28 AM CDT Inhaled Oxygen Concentration - - Weight 73.9 kg (163 lb) 05/11/2025 11:28 AM CDT Height 165.1 cm (5' 5) 05/11/2025 11:28 AM CDT Body Mass Index 27.12 05/11/2025 11:28 AM CDT Plan of Treatment Health Maintenance Due Date Last Done Comments Kidney Health Evaluation 1942 Pneumococcal Vaccine: 50+ Years (1 of 2 - PCV) 1961 Zoster Vaccines (1 of 2) 1992 Dexa Scan (General) 2007 RSV Immunization or 60+ Years (1 - 1-dose 75+ series) 2017 Lipid Panel 05/23/2024 05/23/2023, 11/24/2020 COVID-19 Vaccine ( - season) 2025 Influenza Adult (#1) 2025 Hemoglobin A1C 10/06/2025 04/05/2025, 04/0 11/2024, 10/09/2024, Additional history exists Diabetes: Retinopathy Eye Exam 03/02/2026 03/02/2025, 01/23/2024 DTaP, Tdap and Td Vaccines (2 - Td or Tdap) 09/04/2027 09/04/2017 PHQ-2 ([facility]) Completed 10/09/2024 Meningococcal B Vaccine Aged Out No l onger eligible based on patient's age to complete this topic Meningococcal Vaccine Aged Out No magalys alexa eligible based on patient's age to complete this topic RSV Immunizations Under 20 Months Aged Out No longer eligible based on patient's age to complete this topic Procedures Procedure Name Priority Date/Time Associated Diagnosis Comments COLLECTION VENOUS BLOOD VENIPUNCTURE Routine 05/11/2025 11:27 AM CDT Acquired hypothyroidism THYROXINE, FREE (FT4) Routine 05/11/2025 11:27 AM CDT Acquired hypothyroidism FREE T3 Routine 05/11/2025 11:27 AM CDT Acquired hypothyroidism THYROID STIM HORMONE TSH Routine 05/11/2025 11:27 AM CDT Acquired hypothyroidism HEMOGLOBIN, GLYCOSYLATED Routine 04/05/2025 Type 2 diabetes mellitus without complication, with long-term current use of insulin ([facility]) DIABETIC RETINOPATHY EXAM (POSITIVE)(SCAN ORDER) Routine 03/02/2025 LIPID PANEL Routine 05/23/2023 10:25 AM CDT Acquired hypothyroidism from Last 3 Months or Most Recently Relevant to Health Maintenance Results * FREE T3 (05/11/2025 11:27 AM CDT) FREE T3 2.4 2.18 - 3.98 PG/ML 05/11/2025 5:22 PM CDT [facility] 05/11/2025 11:2 7 AM CDT Israel Blount MD LABORATORY Final Resul t Performing Organization Address [facility] Co de Phone Number [facility] [address] [place] [address], [place] [phone] * THYROXINE, FREE (FT4) (05/11/2025 11:27 AM CDT) FREE T4 0.86 0.76 - 1.46 NG/DL 05/11/2025 12:09 PM CDT [facility] 05/11/2025 11:2 7 AM CDT Israel Blount MD LABORATORY Final Resul t Performing Organization Address [facility] Co de Phone Number [facility] [address] [place] [address], [place] [phone] * THYROID STIM HORMONE TSH (05/11/2025 11:27 AM CDT) TSH 1.960 0.358 - 3.74 uIU/ML 05/11/2025 12:09 PM CDT [facility] Comment: HIGH DOSES OF BIOTIN MAY INTERFERE WITH THIS TEST RESULT. CORRELATION TO CLINICAL HISTORY AND PRESENTATION RECOMMENDED. 05/11/2025 11:2 7 AM CDT Israel Blount MD LABORATORY Final Resul t Performing Organization Address [facility] Co de Phone Number [facility] [address] [place] [address], [place] [phone] * HEMOGLOBIN, GLYCOSYLATED (04/05/2025) HGB A1C 8.7 % [id number] T [facility] MARIELA [place] 04/05/2025 Israel Blount MD LABORATORY Final Resul t -[id number] [address] [place] [address] [place] [address], * DIABETIC RETINOPATHY EXAM (POSITIVE) (03/02/2025) [facility] Scanned SCANNING Final Resu lt [facility] * LIPID PANEL (05/23/2023 10:25 AM CDT) CHOLESTEROL 156 <200.0 MG/DL 05/23/2023 2:35 PM CDT [facility] TRIGLYCERIDES 134 <150 MG/DL 05/23/2023 2:35 PM CDT [facility] HDL 48 >40.0 MG/DL 05/23/2023 2:35 PM CDT [facility] LDL (CALCULATED) 81 <100 MG/DL 05/23/20 2:35 PM CDT [facility] NON HDL CHOLESTEROL 108 <130 MG/DL 05/23 2:35 PM CDT [facility] CHOL/HDL RATIO 3.2 0.0 - 4.5 05/23/2023 2:35 PM CDT [facility] VLDL CALCULATION 27 5 - 55 MG/DL 05/23/2023 2:35 PM T [facility] LIPID INTERPRETATION 05/23/2023 2:35 PM T [facility] Comment: NIH CONCENSUS REPORT RECOMMENDATIONS: ADULT CHILD LOW RISK: CHOLESTEROL <200 <170 TRIGLYCERIDE <150 --- HDL >=60 --- LDL <100 <110 BORDERLINE: CHOLESTEROL 200-239 170-199 TRIGLYCERIDE 150-199 --- HDL 40-59 --- LDL 100-159 110-129 HIGH RISK: CHOLESTEROL >=240 >=200 TRIGLYCERIDE >=200 --- HDL <40 --- LDL >=160 >=130 05/23/2023 10:2 5 AM CDT us Israel Blount MD LABORATORY Final Resul t [facility] [address] [place] [address], from Last 3 Months or Most Recently Relevant to Health Maintenance Insurance Care Teams Floral Manager Relationship Specialty [place] [address] [place] [address] PCP - General FAMILY PRACTICE 02/06/23
--- OUTSIDE RECORDS SUMMARY | 2025-07-10 17:39 | XMS_ITS | Encounter Summary ---
Author Organization [facility] Address [address] [place] [address] Care Team Providers Care Vegetable Tier Name Role Phone Israel Blount MD Primary Care Provider [phone] Encounter Details Date Type Department Care Team (Late st Contact Info) Description 05/11/2025 Results Follow-Up [facility] Family & Internal Medicine [address] [phone] [place] Blount [place] [id number] [place] [address] THYROID STIM HORMONE TSH, FREE T3, THYROXINE, FREE (FT4) Social History Tobacco Use Types Packs/Day Years Used Date Smoking Tobacco: Never Smokeless Tobacco: Never Alcohol Use Standard Drinks/Week Comments No 0 [...] AM CDT Sexual Orientation Not on file documented as of this encounter Progress Notes * Shama Vail RN - 05/12/2025 8:35 AM CDT Called pt and informed her of results. She v/u. * Israel Blount MD - 05/11/2025 9:03 PM CDT Pt is aware of these results documented in this encounter Plan of Treatment Not on file documented as of this encounter Visit Diagnoses Not on filedocumented in this encounter Care Teams Vegetable Tier Relationship Specialty [place] [address] [place] [address] PCP - General FAMILY PRACTICE 02/06/23 documented as of this encounter
--- OUTSIDE RECORDS SUMMARY | 2025-07-10 17:39 | XMS_ITS | Encounter Summary ---
Author Organization [facility] Address [facility] [place] [address] Care Team Providers Care Ticket Speculator Name Role Phone Cecilio Couch MD Primary Care Provider Encounter Details Date Type Department Care Team (Late st Contact Info) Description 08/08/2021 Lab Requisition [facility] [address] [place] [address] Jun Asher MD [address] [place] [address] Social History Tobacco Use Types Packs/Day Years Used Date Smoking Tobacco: Never Assessed Comments Unknown Sex and Gender Information Value Date Recorded Sex Assigned at Not on file Legal Sex Female 12:05 PM SOCIAL SCIENCES INSTRUCTOR Gender Identity Not on file Sexual Orientation Not on file documented as of this encounter Plan of Treatment Not on file documented as of this encounter Procedures Procedure Name Priority Date/Time Associated Diagnosis Comments DERMATOPATHOLOGY Routine 08/07/2021 3:3 3 AM SOCIAL SCIENCES INSTRUCTOR documented in this encounter Results * DERMATOPATHOLOGY (08/07/2021 3:33 AM SOCIAL SCIENCES INSTRUCTOR) Case Report Dermatopathology Report Case: [id number] Authorizing Provider: Jun Asher MD Collected: 08/07/2021 03:33 AM Ordering Location: [facility] Received: 08/08/2021 12:08 PM Pathologist: Yesy Steiner MD Specimen: Skin, geat toe nails 4:13 PM SOCIAL SCIENCES INSTRUCTOR DERMATOPATHOLOGY LABORATORY Final Diagnosis Specimen A. SKIN, geat toe nails: COMPACT KERATIN CONSISTENT WITH NAIL PLATE AND RARE YEAST FORMS (L60.8) (see microscopic description and comment) 1 4:13 PM [facility] at [address] SOCIAL SCIENCES INSTRUCTOR Clinical History R/O onychomycosis. 1 4:13 PM [facility] Gross Description Specimen A: Received is one formalin filled container labeled with the patient's name and designated geat toe nails. The specimen consists of a nail clipping measuring [id number] and [id number]. Jar 0+. 1 4:13 PM [facility] Microscopic Description Specimen A. SKIN, geat toe nails: Sections show nail plate. Rare yeast forms and bacteria are present on Periodic acid-Forrest (PAS) stained sections. COMMENT: The rare yeast forms may represent onychomycosis from a non-dermatophyte. Correlation with nail plate culture is recommended. 1 4:13 PM [facility] Disclaimer An external and internal positive and negative controls are appropriate for the histochemical, immunohistochemical and immunofluorescence stain(s) in this case (if any), except where stated explicitly. The performance characteristics of the stain(s) cited in this report were developed and its performance characteristic determined by the Dermatopathology Laboratory at [facility], directed by Dr. Maritza Steiner. These tests need not be, and therefore are not, approved by the [place] Food and Drug Administration. The tests are used for clinical purposes. Billing Codes Specimen Charges Stain Charges 66743 1 01123 1 1 4:13 PM [facility] Embedded Images 1 4:13 PM [facility] Pathology/Cytolo gy TISSUE SPECIMEN FROM SKIN / Unknown 08/07/2021 3:33 AM SOCIAL SCIENCES INSTRUCTOR 08/08/2021 12:08 PM SOCIAL SCIENCES INSTRUCTOR us Jun Asher MD LAB - PATHOLOGY/CYTOLOGY ORD ERABLES Final Result DERMATOPATHOLOGY LABORATORY [facility] - Department of Dermatology [address], [address] [place], [place] [id number] [place] [address] documented in this encounter Visit Diagnoses Not on filedocumented in this encounter Care Teams Ticket Speculator Relationship Specialty Start Date End Date Cecilio Couch MD [address] [place] [address] PCP - General 08/08/21 documented as of this encounter
--- OUTSIDE RECORDS SUMMARY | 2025-07-10 17:39 | XMS_ITS | Clinical Summary ---
Author Organization [facility] Address [address] [place] [address] Care Team Providers Care Business Continuity Director Name Role Phone Cecilio Couch MD Primary Care Provider Source Comments [facility],non-owned Affiliates and Associated Physician Practices is amultiple site organization consisting of ambulatory clinics and hospital sitesin [place], [place], [place] and [place]. This disclosure is being madepursuant to the Care Everywhere program and may not contain all information available regarding this patient. 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 Gender Identity Not on file Sexual Orientation Not on file Plan of Treatment Health Maintenance Due Date Last Done Comments BONE DENSITY TESTING 1940 DTAP/TDAP/TD VACCINES (1 - Tdap) 1961 PNEUMOCOCCAL VACCINE 50+ (1 of 1 - PCV) 1992 ZOSTER VACCINE (1 of 2) 1992 Respiratory Syncytial Virus (RSV) Vaccine Pt: or over 60 yrs (1 - 1-dose 75+ series) 2017 DEPRESSION SCREENING 09/30/2024 COVID-19 VACCINE (1 - 2023-2 5 season) 2025 INFLUENZA VACCINE (#1) 2025 HEPATITIS B VACCINE Aged Out No longe r eligible based on patient's age to complete this topic HIB VACCINE Aged Out No longer eligi ble based on patient's age to complete this topic HPV VACCINE Aged Out No longer eligi ble based on patient's age to complete this topic MENINGOCOCCAL (Group B) VACC INE SHARED DECISION-MAKING Aged Out No longer eligibl e based on patient's age to complete this topic MENINGOCOCCAL GROUPS A/C/Y/W VACCINE Aged Out No longer eligible b ased on patient's age to complete this topic Insurance Code [place] [id number] Care Teams Business Continuity Director Relationship Specialty Start Date End Date Cecilio Couch MD [address] [place] [id number] PCP - General 08/08/21
[2025-07-10 17:43] VITALS: BP 167/67; PULSE 77; RESP 18; TEMP 36.7; O2SAT 100
--- NOTE | 2025-07-10 18:02 | ED.LOWEXIN ---
HPI - Extremity Injury (Lower) General Chief Complaint: Extremity Injury, Lower Stated Complaint: R Leg Time Seen by Provider: 07/10/25 17:45 Source: patient Mode of arrival: ambulatory Limitations: no limitations History of Present Illness HPI Narrative: 85 y/o female with hx DM presented for c/o right lower leg pain, onset 0300 today. Says she woke at that time due to hearing a noise, then felt the sudden pain which has persisted throughout the day. Pain is worse when bearing weight. Endorses BLE swelling at baseline, but says the right leg is more swollen than usual. Denies redness or warmth. She uses cane or walker. Also states she developed right foot pain after wearing new orthotic sneakers for several hours 2 weeks ago; has had foot pain since as well. Related Data Home Medications ?Medication ?Instructions ?Recorded ?Confirmed ?Last Taken ?Type empagliflozin 10 mg tablet 10 mg DIRECTED 08/26/24 09/18/24 Unknown History (Jardiance) metformin 500 mg tablet 500 mg DIRECTED 08/26/24 09/18/24 Unknown History thyroid (pork) 90 mg tablet 90 mg DIRECTED 08/26/24 09/18/24 Unknown History ([place] Thyroid) Allergies Allergy/AdvReac Type Severity Reaction Status Date / Time bevacizumab Allergy Unknown Anaphylactic Verified 07/10/25 18:02 Shock ciprofloxacin Allergy Unknown Unknown Verified 07/10/25 18:02 prednisone AdvReac Mild Loss of Verified 07/10/25 18:02 bladder control steroids Allergy Unknown Uncoded 09/09/24 10:26 Review of Systems Review of Systems: CONSTITUTIONAL: Denies body aches, fever, chills EYES: Denies visual changes ENT: Denies rhinorrhea, congestion CARDIOVASCULAR: Denies chest pain, palpitations, or edema. RESPIRATORY: Denies cough or dyspnea. SKIN: Denies rash, itching, or wounds. MUSCULOSKELETAL: reports RLE pain denies back pain NEUROLOGIC: Denies numbness, tingling, or weakness. All systems reviewed & are unremarkable except as noted in HPI and below PMFSH Past Medical History Medical History Dystrophic nail Cellulitis of foot, left Type 2 diabetes mellitus with peripheral neuropathy Arthritis Hypothyroid Diabetic retinopathy Diabetes Surgical History Surgical History History of gynecological procedure suction D&C missed AB x 2 H/O: hysterectomy H/O esophagogastroduodenoscopy H/O cataract extraction Family History Family History Sibling Family history of alcoholism Family history of diabetes mellitus in first degree relative Mother Family history of lung disease Father Family history of heart disease in male family member before age 55 Social History Social History Smoking status: Never smoker Alcohol intake: never Substance use: never Substance use type: does not use Living arrangements: other Additional living arrangements comments: Occupation/Education: retired Gender identity (if verbalized by the patient): Female Sexual Orientation (if Verbalized by the Patient): Straight or Heterosexual Comments At time of signature, I have reviewed and agree with nursing past medical, surgical, social and family history unless otherwise noted. Please see nursing chart for further information. There is no relevant family history pertinent to the presenting complaint Exam Narrative: GENERAL: Well-appearing and in no acute distress. CHEST: Speaks in full sentences. No respiratory distress. HEART: Regular rate and rhythm. Normal and equal peripheral pulses. EXTREMITIES: RLE has normal strength and sensation, baseline range of motion at hip, knee and ankle. Negative leeann's sign but endorses pain to lower leg mcbride and calf with palpation, movement, and weight bearing. Tender to anterior/lateral and posterior lower leg. RLE 2+ edema, LLE 1+ edema. No discoloration, or warmth. No varicosities. bilateral pedal pulse palpable and equal, skin warm, dry, pink. Capillary refill less than 3 seconds. SKIN: Warm, dry, no rash. NEURO: Alert and oriented x3. PSYCH: Normal mood and affect Course Course Emergency Course: Patient is aware of diagnosis, understands and agrees to treatment plan. Anticipatory guidance given. Patient agrees to follow-up as directed and is aware of reasons to seek care at the emergency department. Portions of this record may have been created with voice recognition software Level of Care: Express Care Visit Vital Signs Vital signs: Vital Signs Temperature 98.1 F 07/10/25 17:43 Pulse Rate 77 07/10/25 17:43 Respiratory Rate 18 07/10/25 17:43 Blood Pressure 167/67 H 07/10/25 17:43 Pulse Oximetry 100 07/10/25 17:43 Oxygen Delivery Room Air 07/10/25 17:43 Temperature 98.1 F 07/10/25 17:43 Pulse Rate 77 07/10/25 17:43 Respiratory Rate 18 07/10/25 17:43 Blood Pressure 167/67 H 07/10/25 17:43 Pulse Oximetry 100 07/10/25 17:43 Oxygen Delivery Room Air 07/10/25 17:43 Reviewed MDM - Extremity Injury (Lower) MDM Narrative Medical decision making narrative: Discussed physical exam findings; Right lower leg pain to mcbride and calf. Negative Well's criteria. Xray reviewed. Advised supportive measures and signs/symptoms to go to the ER. Pt is appropriate for outpt treatment and f/u. Differential Diagnosis Differential diagnosis: Likely other (DVT, CHF, PVD, venous insufficiency, medication related, renal failure, gravitational edema, cellulitis, musculoskeletal pain, contusion, fracture) Imaging Data Radiologist's impression: Patient: Shanique Dickinson : 1940 MR#: [id number] Age: 85 Acct:[id number] Loc: [facility] ADM Date: 07/10/25 EXAMINATION: XR tibia fibula RT 2V, 07/10/2025 17:58 CDT HISTORY: right leg sudden pain COMPARISON: No comparisons available. Findings: No acute fracture or malalignment. No significant degenerative changes. Soft tissues unremarkable. Impression: No acute fracture or malalignment. Discharge Plan Discharge Clinical Impression: Lower extremity pain, right Patient Disposition: Home Condition: Stable Instructions: Antibiotic Form, Leg Pain (ED) Additional Instructions: Rest and elevate the legs when possible Tylenol 1000mg every 8 hours as needed You can alternate with ibuprofen 400mg Alternate ice/heat to the site. use pain cream like Voltaren, icy/hot or biofreeze. Follow up with your primary care provider as needed in 1 week Go to the ER for worsening symptoms or concerns Patient Language: Cypriot Prescriptions: No Action Jardiance 10 mg tablet 10 mg DIRECTED metformin 500 mg tablet 500 mg DIRECTED Rx Instructions: TAKE 1 TABLET FOUR TIMES A DAY thyroid (pork) [[place] Thyroid] 90 mg tablet 90 mg DIRECTED Rx Instructions: TAKE 1 TABLET BY MOUTH DAILY (DME) FreeStyle Hank 2 Sensor Kit See Rx Instructions .Route Qty: 6 0RF Rx Instructions: change every 14 days (DME) FreeStyle Hank 14 Day [place] Misc See Rx Instructions .Route Qty: 1 0RF Rx Instructions: As directed Toujeo Max U-300 SoloStar 300 unit/mL (3 mL) insulin pen 40 unit subcut QHS Qty: 6 1RF Follow-up/Referrals: Mine,Israel Shannon MD [Primary Care Provider]
== END 2025-07-10 18:50 | disposition home or self-care (01) ==
PROVIDERS: Emergency Provider Nurse Practitioner Family; PCP Family Medicine
DX: M79.661 Pain in right lower leg (principal); E11.42 Type 2 diabetes mellitus with diabetic polyneuropathy; E11.319 Type 2 diabetes mellitus with unspecified diabetic retinopathy without macular edema; Z79.84 Long term (current) use of oral hypoglycemic drugs; E03.9 Hypothyroidism, unspecified; M19.90 Unspecified osteoarthritis, unspecified site
CPT/HCPCS: 73590; 99213; G0463